=== PATIENT | female | born 1970 | race Caucasian/White ===

== ENCOUNTER → 2018-07-26 14:47 | Outpatient (CLI) | payer BC, SELFPAY | PROVIDERS: Family Provider Preventive Medicine Occupational Medicine; PCP Preventive Medicine Occupational Medicine; Visit Provider Nurse Practitioner Adult Health | DX: N20.0 Calculus of kidney (principal); N23 Unspecified renal colic; R10.9 Unspecified abdominal pain | CPT/HCPCS: 74018 ==

== ENCOUNTER → 2018-07-26 16:11 | Outpatient (CLI) | payer BC, SELFPAY | PROVIDERS: Family Provider Preventive Medicine Occupational Medicine; PCP Preventive Medicine Occupational Medicine; Visit Provider Nurse Practitioner Adult Health | DX: N20.0 Calculus of kidney (principal) | CPT/HCPCS: 74176 ==

== ENCOUNTER → 2018-08-02 09:18 | Outpatient (CLI) | payer BC, SELFPAY | PROVIDERS: Family Provider Preventive Medicine Occupational Medicine; PCP Preventive Medicine Occupational Medicine; Visit Provider Surgery | DX: R10.9 Unspecified abdominal pain (principal); K80.20 Calculus of gallbladder without cholecystitis without obstruction | CPT/HCPCS: 76705 ==

== ENCOUNTER 2018-08-21 11:39 | Day surgery (SDC) | payer BC, SELFPAY ==
--- NOTE | 2018-08-16 13:11 | EKG12_ITS ---
Test Reason : PREOP Blood Pressure : / mmHG Vent. Rate : 082 BPM Atrial Rate : 082 BPM P-R Int : 144 ms QRS Dur : 112 ms QT Int : 378 ms P-R-T Axes : 058 036 028 degrees QTc Int : 441 ms Normal sinus rhythm Possible Left atrial enlargement Incomplete right bundle branch block Borderline ECG Confirmed by MARY JANE AGUSTIN, AMRIK ([id number]), editor managing director JANEE CAMPBELL ([id number]) on 08/22/2018 9:32:13 AM Referred By: Daniele Pryor Confirmed By:AMRIK HINTON MD
[2018-08-16 13:53] LABS: Thyroid Stim Hormone (TSH) 2.82 uIU/mL (0.358-3.74)
[2018-08-21] VITALS (11 sets, daily range): BP systolic 128–145; BP diastolic 68–92; PULSE 51–78; RESP 16–18; TEMP 36.4–37.3; O2SAT 95–99; BMI 36.6
--- NOTE | 2018-08-21 13:50 | GALL_PTH ---
PATIENT: GABRIEL BLAIR [place] [facility] [place][id number] AGE/SX: 47/F ROOM: RE08/21/[address]: Dr. Daniele Pryor MD : 1970 BED: DIS: 08/21/2018 SPEC #: [id number] RECD: 08/22/18 10:27 STATUS: FRANSICO SAMY #: [id number] TAI: 08/21/18 13:[address]: Daniele Pryor DEPT: SURGICAL PATHOLOGY RECD BY: Rula Angulo ENTERED: 08/22/18 11:27 SP TYPE: KASIA PIERCE DR: MD Dr. Dane Wall DO Tissues: Gallbladder, NOS Procedures: Surgery Specimen Level III HEADER OPERATION: Laparoscopic, cholecystomy PRE-OP DIAGNOSIS: Calculus of gallbladder with chronic cholecystitis without obstruction TISSUE SUBMITTED: Gallbladder MICROSCOPIC DIAGNOSIS Gallbladder: Chronic cholecystitis, cholelithiasis and cholesterolosis. SJ:kody 08/23/18 MICROSCOPIC DESCRIPTION Slides are reviewed. GROSS DESCRIPTION Received is one container labeled with the patient's name and designated gallbladder. The specimen consists of a gallbladder measuring 7 cm in length and up to 2.5 cm in diameter. The external surface is pink-ferreira, smooth and glistening for the most part. Focally it is granular, hemorrhagic and contains cautery artifact. The gallbladder contains green-yellow mucoid bile and five variable sized, ovoid to multifaceted greenish stones measuring in aggregate 2 x 1.5 x 0.5 cm and 0.5 to 0.7 cm in greatest dimension. The mucosa is bile-stained and without any mass lesions. The gallbladder wall measures up to 0.3 cm in thickness. [employer] sections from the gallbladder and the cystic duct are submitted in one cassette. / GISELL:kody 08/22/18 TC:4 CPT: 84994
[2018-08-21] MEDS: Cefazolin 2 GM in 0.9% Normal Saline 100 ML IV (14:15)
--- NOTE | 2018-08-21 14:28 | DCINST_ITS ---
Discharge Diet: Light diet - advance as tolerated Discharge Activity: May Not Drive - for 2-3 days or while taking narcotic pain medications., - - Do not drive, work heavy equipment or sign legal documents for 24 hours. May shower in (days): 1 - with the bandage in place. Additional Activity Instructions:: Pain medication may cause nausea. You should typically eat light foods as you take your pain medications. Pain medication may also cause constipation. If this is a problem for you, please discuss with your doctor. Call your doctor if your incision/area has: Continuous Slow Oozing, Sudden Increased Bleeding, Increased Pain/ Swelling, Increased Redness, Foul Smelling Discharge Call your doctor if you observe: Fever of 101 or Higher Suture Line Care: Avoid Pulling/Pushing, Avoid Pinching/Bending Additional Dressing/Incision Instructions:: Leave operative bandaids on for 2 days. When you remove dressing, leave Steri-Strips on until your follow-up appointment, or until the Steri-Strips fall off on their own. Allergies/Adverse Reactions: Allergies No Known Allergies Allergy (Verified 08/14/18 13:16) Medications to take at Discharge Oxycodone HCl/Acetaminophen [Percocet 5/325] 1 - 2 tab PO Q4H PRN PRN 5 Days #30 tab 08/21/18 The following prescriptions were given: Oxycodone HCl/Acetaminophen [Percocet 5/325] 1 - 2 tab PO Q4H PRN PRN 5 Days #30 tab PRN Reason: Pain Primary Care Physician: Dane Nguyễn DO [Primary Care Provider] - Test Results: Test results from this visit will be discussed in further detail at your follow- up appointment, if applicable. Please Follow Up With: Daniele Pryor MD - Please call [phone] to schedule an appointment. When: 7 days after your surgery.
--- NOTE | 2018-08-21 14:28 | PCM.OPRPT ---
Problem List (1) Calculus of gallbladder with chronic cholecystitis without obstruction Status: Acute Report of Operation Date of Procedure: 08/21/18 Pre-Operative Diagnosis: K80.10 calculus of the gallbladder with chronic cholecystitis without obstruction Post-Operative Diagnosis: SAME Surgery/Procedure Performed:: Laparoscopic cholecystectomy Type of Anesthesia:: General Anesthesiologist: Gian Thomas Estimated Blood Loss (mL): < 25 CC Fluids Replaced: 1 L LR Description of Procedure: Patient was brought in the operating room placed in the supine position. Under excellent general endotracheal intubation the abdomen was sterilely prepped and draped in the usual fashion. Local was injected supraumbilically and dissection was carried down to the fascia. The fascia was grasped with a [place]. Varies needle was placed inside the abdomen. The abdomen was insufflated to 15 torr. A 10/12 trocar was placed without difficulty. Patient was placed in the head up and rotated to the left position. A subxiphoid #5 trocar was placed, inferior to this another #5 trocar was placed, laterally a #5 trocar was placed. All of these under direct visualization without injury to underlying structures. Fundus of the gallbladder was grasped retracted in the cephalad direction. The patient was placed in the head up and rotated to the left position. Infundibulum was grasped and retracted laterally. I dissected out the cystic duct. Hemoclips were placed proximally and distally the duct was ligated. The cystic artery was identified hemoclips were placed proximally and distally and it was ligated. I deliver the gallbladder from the gallbladder bed with use of electrocautery. I placed the specimen in the specimen bag and delivered through the umbilical port without difficulty. I used electrocautery on the liver bed for good hemostasis. I removed the trochars under direct visualization good hemostasis was noted. I closed the fascia the umbilical port with a [id number] stitch of 0 Vicryl. Skin incisions were closed with subcuticular stitches of 4-0 Monocryl. Steri-Strips were applied. Sterile dressings were applied. The patient tolerated the procedure well. - Admit VTE Documentation VTE Present on Admission: No VTE Mechan Device Prophylaxis: SCD's VTE Pharm Prophylaxis ordered?: No Reason prophylaxis not ordered:: Treatment Not Indicated
[2018-08-21] MEDS: Bupivacaine Mpf 0.5% 30 ML VIAL (14:53)
--- NOTE | 2018-08-21 15:40 | EKG12_ITS ---
Test Reason : ARRYTHMIA POST-OP Blood Pressure : / mmHG Vent. Rate : 068 BPM Atrial Rate : 068 BPM P-R Int : 154 ms QRS Dur : 110 ms QT Int : 424 ms P-R-T Axes : 061 072 051 degrees QTc Int : 450 ms Normal sinus rhythm with sinus arrhythmia Normal ECG When compared with ECG of 16-AUG-2018 13:16, MANUAL COMPARISON REQUIRED, DATA IS UNCONFIRMED Confirmed by MARY JANE AGUSTIN, AMRIK ([id number]), telegraph editor JANEE CAMPBELL ([id number]) on 08/24/2018 3:11:49 PM Referred By: Daniele Pryor Confirmed By:AMRIK HINTON MD
[2018-08-21 16:45] LABS: Bedside Glucose 143 mg/dL (70-110)
== END 2018-08-21 18:21 | disposition home or self-care (01) ==
LOC: SDC 11:40 → AC 11:40
PROVIDERS: Anesthesiology; Family Provider Preventive Medicine Occupational Medicine; PCP Preventive Medicine Occupational Medicine; Visit Provider Surgery
PROC: (CPT 47562; principal; 2018-08-21 13:30)
DX: K80.10 Calculus of gallbladder with chronic cholecystitis without obstruction (principal); K21.9 Gastro-esophageal reflux disease without esophagitis; E03.9 Hypothyroidism, unspecified; I45.10 Unspecified right bundle-branch block
CPT/HCPCS: 47562; 36415; 82962; 84443; 84484; 88304; 93005; J7120; J2405